=== PATIENT | female | born 1955 | race Caucasian/White ===

== ENCOUNTER 2016-11-20 14:00 | Inpatient (IN) | payer OTHER ==
[~2016-11-20] VITALS: Ht 165.1 cm; Wt 76.3 kg
--- NOTE | ~2016-11-20 | HP ---
PATIENT'S NAME: DANIEL RAMIREZ [facility] AGE: 61 Y [address] ROOM: [place] [address] LOCATION: [facility] ADMIT DATE: 12/04/2016 History & Physical DISCHARGE DATE: FAMILY PHYSICIAN: Celeste Tapia MD ATTENDING PHYSICIAN: SHIRA HOUSTON DATE OF SERVICE: CHIEF COMPLAINT: Hypertension, preop evaluation for left total knee replacement. HISTORY OF PRESENT ILLNESS: The patient is a 61-year-old female with past medical history of hypertension, hypothyroidism, and history of PVCs who presents here today for left knee surgery. The patient reports that she has been having left knee osteoarthritis pain for a while and has limited her activity of daily life. The patient was seen by Dr. Houston and is scheduled for surgery today. The patient reports that she is an active person and able to ambulate and walk up to 1 mile with no limitation of shortness of breath, chest pain, and dizziness. She reports that only thing that limits her is osteoarthritis pain. She denies any orthopnea, fever, chills, dysuria, dyspnea on exertion, paroxysmal nocturnal dyspnea, cough, abdominal pain, nausea, vomiting, and diarrhea. The patient has had lab work done on 21 of November. She had factor V Leiden mutation workup done which shows negative as she has a family history of factor V Leiden mutation with PE. The patient reports that she has had surgery in the past and did not have any complication from the surgery. She also reports that she does not have any contraindication getting blood products if needed. MEDICAL HISTORY: Hypertension, hypothyroidism, PVCs, and osteoarthritis. SURGICAL HISTORY: Hysterectomy, cholecystectomy, carpal tunnel surgery, and bone spur removal of foot. FAMILY HISTORY: Mother had a factor V Leiden mutation with PE and also heart failure. SOCIAL HISTORY: She denies smoking and drinking. 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 MEDICATIONS: 1. Tramadol 50 mg t.i.d. for pain. PATIENT'S NAME: DANIEL RAMIREZ [facility] AGE: 61 Y [address] ROOM: [address] [address] LOCATION: [facility] ADMIT DATE: 12/04/2016 History & Physical DISCHARGE DATE: FAMILY PHYSICIAN: Celeste Tapia MD ATTENDING PHYSICIAN: SHIRA HOUSTON 2. Omeprazole 40 mg q.a.m. 3. Gabapentin 300 mg t.i.d. 4. Lipitor 40 mg at bedtime. 5. Escitalopram 20 mg nightly. 6. Spironolactone 25 mg q.a.m. 7. Losartan/hydrochlorothiazide one tablet q.a.m. 8. Metoprolol succinate 50 mg q.a.m. 9. Synthroid 75 mcg daily. 10. Meloxicam 15 mg q.a.m. 11. Tylenol 650 mg t.i.d. 12. Cetirizine 10 mg q.a.m. REVIEW OF SYSTEMS: All systems have been reviewed and are negative except for what I mentioned in the HPI. PHYSICAL EXAMINATION: VITAL SIGNS: Afebrile, blood pressure 132/77, heart rate of 88, saturating 95% on room air with respiratory rate of 15. GENERAL APPEARANCE: The patient is alert and awake, lying on bed, in no acute distress. HEAD: Normocephalic, atraumatic. EYES: Extraocular muscles intact. NOSE: No nasal discharge. EARS: No ear discharge. ORAL CAVITY: Moist oral mucosa. CHEST: Clear to auscultation bilaterally. HEART: Regular rate and rhythm. No murmur, rubs, or gallops. ABDOMEN: Soft, nontender, and nondistended. Bowel sounds are present. SKIN: Warm to touch. MUSCULOSKELETAL: Range of motion intact. No obvious joint effusion. MORTUARY BEAUTICIAN: The patient is alert and oriented x3. Motor and sensory are grossly intact. LABORATORY DATA: Lab that was done on 11/21/2016 shows factor V Leiden mutation negative, potassium of 4.5, chloride of 107, carbon dioxide of 21, creatinine of 1.5. PT of 12.3, INR of 0.93, PTT of 27. White blood cell count of 6.5, hemoglobin of 13.8, hematocrit 40.9, MCV of 101. UA is unremarkable. EKG, normal sinus rhythm with no ST and T-wave ischemic changes. ASSESSMENT AND PLAN: 1. Left knee osteoarthritis. The patient is scheduled for surgery today by Dr. Houston. The patient is stable, does not have any significant cardiac PATIENT'S NAME: DANIEL RAMIREZ [facility] AGE: 61 Y [address] ROOM: [address] [address] LOCATION: [facility] ADMIT DATE: 12/04/2016 History & Physical DISCHARGE DATE: FAMILY PHYSICIAN: Celeste Tapia MD ATTENDING PHYSICIAN: SHIRA HOUSTON. The patient is able to do greater than 4 METs without any symptoms of heart failure. Also the patient does not exhibit any valvular disease on physical examination and prior echo. The patient has a creatinine of 1.5 with no prior creatinine to compare with. However, this should not withhold the proposed surgery. From a medical standpoint, there is no intervention needed to lower the risk of cardiac and pulmonary event. The patient is stable for surgery and can proceed with the proposed surgery. 2. Elevated creatinine. Etiology most likely secondary to chronic use of NSAIDs and use of diuretics such as hydrochlorothiazide, losartan, and spironolactone. To hold spironolactone and hydrochlorothiazide. To repeat renal function panel and we will follow closely. 3. Hypertension, stable. Holding diuretics, continue Toprol-XL. 4. Hypothyroidism. Continue Synthroid. 5. Premature ventricular contractions. Currently on telemetry. There is no evidence of premature ventricular contractions seen. To continue Toprol- XL. Greater than 40 minutes was spent on patient care. Greater than 50% of the time was spent on direct patient care with direct interview and physical examination and also going through the patient's chart. The patient is stable and can proceed with the proposed surgery. MD KRISTINA RYAN/beatriz /[id number] D: T: HISTORY & PHYSICAL
--- NOTE | ~2016-11-20 | DS ---
[facility] 61 Y [address] ROOM: [place] [address] LOCATION: [facility] ADMIT DATE: 12/04/2016 Discharge Summary DISCHARGE DATE: 12/06/2016 FAMILY PHYSICIAN: Celeste Tapia MD ATTENDING PHYSICIAN: Remy Lagunas PRIMARY DIAGNOSIS: Degenerative joint disease of the left knee. SECONDARY DIAGNOSIS: 1. Hypertension. 2. Dyslipidemia. 3. Hypothyroidism. 4. Depressive disorder. 5. Elevated creatinine. PROCEDURE PERFORMED: Left total knee arthroplasty. HISTORY: The patient is a 61-year-old female, who presents with advanced left knee degenerative joint disease and associated severely compromised activities of daily living. The patient has decided to proceed with total knee arthroplasty after having been thoroughly counseled regarding the risks, benefits, limitations and alternatives. Please refer to the outpatient clinic notes and admission history and physical for this patient. HOSPITAL COURSE: The patient underwent a left total knee arthroplasty on 12/04/2016 without complications. Spinal anesthesia plus adductor canal block plus periarticular local anesthesia was utilized. The patient received 24 hours of perioperative prophylactic antibiotics and remained hemodynamically stable, neurovascularly intact throughout the entire hospital course. The postoperative prophylactic deep venous thrombosis prophylaxis consisted of Aspirin 325 mg, early mobilization and pneumatic compression devices. Daily physical therapy for gait training, transfer training range of motion and quadriceps isometric exercises were received. The patient progressed well in physical therapy. On the date of discharge, 12/06/2016, the incision at the knee was healing well and showed no signs of infection. DISPOSITION: Home. DISCHARGE ACTIVITY: The patient is to bear weight as tolerated with range of motion and quadriceps isometric exercises as instructed. The operative extremity is to be elevated at least 90% of the day. There is to be sterile 4x4 gauze dressings to the incision daily. Dr. Lagunas is to be notified immediately if there is any increased pain, fevers, chills erythema or drainage. PATIENT'S NAME: DAISY RAMIREZYCLetty Interiano [facility] AGE: 61 Y [address] ROOM: [place] [address] LOCATION: [facility] ADMIT DATE: 12/04/2016 Discharge Summary DISCHARGE DATE: 12/06/2016 FAMILY PHYSICIAN: Celeste Tapia MD ATTENDING PHYSICIAN: Remy Lagunas DISCHARGE MEDICATIONS: 1. Aspirin 325 mg 1 tab p.o. for 30 days for postoperative DVT prophylaxis. 2. Hydromorphone 2 mg 1 to 2 tabs p.o. every 4 hours p.r.n. for pain. 3. She was then instructed to continue all her other preadmission medications as instructed by her internal medicine physician. FOLLOWUP: Followup appointment is to be with Dr. Lagunas's office on 12/11/2016 for her initial postoperative evaluation with x-rays of the left knee and staple removal at that time. CARMEN BAUM PA-C FOR MD ALYSSA VALENTINO/beatriz /[id number] d: 12/11/16 0057 t: 12/11/16 0836, DISCHARGE SUMMARY
--- NOTE | ~2016-11-20 | OR ---
[facility] 61 Y [address] ROOM: [place] [address] LOCATION: [facility] ADMIT DATE: 12/04/2016 OR/Procedure Report DISCHARGE DATE: FAMILY PHYSICIAN: Celeste Tapia MD ATTENDING PHYSICIAN: SHIRA HOUSTON SURGEON: Shira Houston MD TAXI DRIVER SUPERVISOR: 1. JOSE Avalos. 2. Jonathan Menezes CST/EUGENE. DATE OF PROCEDURE: 12/04/2016 PRE-OP DIAGNOSIS: Severe left knee degenerative joint disease (primary osteoarthritis). POST-OP DIAGNOSIS: Severe left knee degenerative joint disease (primary osteoarthritis). OPERATION: Left total knee arthroplasty with computer navigation. ANESTHESIA: Spinal anesthesia plus adductor canal block plus periarticular local anesthesia (ropivacaine with epinephrine and Toradol). ESTIMATED BLOOD LOSS: Less than 10 cubic centimeters. DRAIN: None. SPECIMEN: None. COMPLICATIONS: None. IMPLANT SYSTEM: Emmanuel Triathlon Size 5 left posterior stabilized femoral component Size 4 universal modular tibial baseplate 11 mm posterior stabilized size 4 X3 tibial polyethylene insert 29 mm Oval X3 patella component (triple pegged). INDICATIONS FOR SURGERY: The patient is a 61-year-old female who presents with advanced left knee degenerative joint disease and associated severely compromised activities of daily living. The patient has decided to proceed with knee replacement after having been thoroughly counseled regarding the associated risks, benefits, and limitations. We have specifically reviewed the risks and implications of infection, deep venous thrombosis, pulmonary embolism, mortality, neurovascular complications, blood transfusion (and associated potential for disease transmission or transfusion reaction), stiffness, instability, mechanical deterioration of the components (due to wear and or loosening), and the potential need for revision. We have also PATIENT'S NAME: [facility] AGE: 61 Y [address] ROOM: [place] [address] LOCATION: [facility] ADMIT DATE: 12/04/2016 OR/Procedure Report DISCHARGE DATE: FAMILY PHYSICIAN: Celeste Tapia MD ATTENDING PHYSICIAN: SHIRA HOUSTON emphasized the importance of active involvement and compliance with post- operative physical therapy as a means of optimizing range of motion and functional recovery. Informed consent has been granted. DESCRIPTION OF PROCEDURE: The patient was positioned supine after administration of anesthesia and prophylactic antibiotics. A well-padded pneumatic tourniquet was placed around the left proximal thigh, and the left lower extremity was prepped and draped with vigilant sterile technique. The patient's name as well as the intended operative side and procedure were confirmed with a verbal time-out involving myself, the circulating nurse, the scrub nurse, and the anesthesiologist. Examination under anesthesia demonstrated well-healed inferomedial and inferolateral arthroscopy portal scars. There was a large effusion. There was a valgus deformity of approximately 10 degrees. There was no erythema. There was no abnormal warmth. Range of motion under anesthesia was from 2 degrees of hyperextension to 130 degrees of flexion. There was 3 mm of laxity of the medial collateral ligament. The left lower extremity was elevated and exsanguinated with an Esmarch wrap, and the pneumatic tourniquet was inflated to 300mmHg. The knee was approached through a longitudinal midline incision. A medial parapatellar arthrotomy was performed and the patella was everted. Examination of the joint space demonstrated a large amount of benign-appearing translucent synovial fluid. There were no loose bodies. There was no proliferative synovitis. The cruciate ligaments were intact. There was mild fibrosis of the infrapatellar fat pad. There was full-thickness loss of articular cartilage involving the posterolateral 2/3rd of the lateral femoral condyle and 90% of the lateral tibial plateau. There were small osteophytes at the lateral femoral condyle and lateral tibial plateau. The lateral femoral condyle was hypoplastic. There was a longitudinal 1 x 3 cm region of high-grade partial thickness articular cartilage loss at the central aspect of the medial femoral condyle. There were generalized grade 2 degenerative changes at the medial tibial plateau. There were mild grade 3 degenerative changes at the central aspect of the femoral trochlea. There was a small osteophyte at the lateral aspect of the femoral trochlea. There were mild grade 3 degenerative changes at the apex of the patella. Remnants of the menisci and cruciate ligaments were excised. The [employer] navigation femoral tracker was pinned in place at the distal aspect of the femoral trochlea. Absence of motion between the femur and the tracking device was confirmed manually and visually. Femoral osseous landmarks were obtained in order to calibrate the computer navigation system. Landmarks included the center of rotation of the ipsilateral hip, the center-point of PATIENT'S NAME: DANIEL RAMIREZ [facility] AGE: 61 Y [address] ROOM: [id number] [place] [id number] LOCATION: [facility] ADMIT DATE: 12/04/2016 OR/Procedure Report DISCHARGE DATE: FAMILY PHYSICIAN: Celeste Tapia MD ATTENDING PHYSICIAN: SHIRA HOUSTON the distal femur, the femoral AP axis, 57 points on the medial femoral condyle articular surface, and 57 points on the lateral femoral condyle articular surface. The [employer] computer navigation system was subsequently utilized to position the distal femoral resection block such that the distal femoral resection was performed perfectly perpendicular to the femoral mechanical axis. The distal femoral resection was performed with a Hopscotch oscillating saw. The [employer] computer navigation tibial tracker was pinned in place at the anterior aspect of the tibial plateau. Absence of motion between the tibia and the tracking device was confirmed manually and visually. Tibial osseous landmarks were obtained in order to calibrate the computer navigation system. Landmarks included the center-point of the tibial plateau, the AP tibial axis, 57 points on the medial tibial plateau articular surface, 57 points on the lateral tibial plateau articular surface, the medial malleolus, and the lateral malleolus. The [employer] computer navigation system was subsequently utilized to position the proximal tibial resection block such that the proximal tibial resection was performed perfectly perpendicular to the tibial mechanical axis. The proximal tibial resection was performed with a basno Precision oscillating saw. Perpendicularity of the tibial resection with respect to the tibial shaft axis was reconfirmed by inserting a spacer- block attached to an extramedullary guide amos. External rotation of the anterior and posterior femoral resections was set parallel to the epicondylar axis and carefully adjusted in order to create a rectangular flexion gap. The box resection was performed with a reciprocating saw. Anterior and posterior chamfer resections were performed with the oscillating saw. Posterior condyle osteophytes were excised with an osteotome. All other osteophytes were excised with a rongeur. Resection of all remnants of the menisci was reconfirmed. Flexion and extension gaps were confirmed to be symmetric and well balanced with a spacer-block technique. The patella resection was performed with an oscillating saw such that the composite thickness of the reconstructed patella was equivalent to the thickness of the [place] patella. Patella tracking was confirmed to be optimal. A lateral retinacular release was required in order to optimize patella tracking. Release of the popliteus tendon and partial release of the iliotibial band were required in order to balance the flexion and extension gaps. All trial components were removed and all prepared osseous surfaces were thoroughly irrigated with pulsatile saline lavage and dried prior to cementing all three components in a single stage using [employer] Simplex cement containing pre-mixed tobramycin. All extruded excess cement was removed. The entire joint space was thoroughly inspected and thoroughly irrigated with PATIENT'S NAME: DANIEL RAMIREZ [facility] AGE: 61 Y [address] ROOM: [address] [address] LOCATION: [facility] ADMIT DATE: 12/04/2016 OR/Procedure Report DISCHARGE DATE: FAMILY PHYSICIAN: Celeste Tapia MD ATTENDING PHYSICIAN: SHIRA HOUSTON bacteriostatic pulsatile saline lavage to assure that there was no residual debris of any sort. Final range of motion was from full extension (with no passive hyperextension) to 130 degrees of flexion. Patella tracking was reconfirmed to be optimal. There was very good anteroposterior stability at 90 degrees of flexion. There was 1 mm of medial lift-off to valgus stress in full extension. There was 0 mm of lateral lift-off to varus stress in full extension. The arthrotomy was closed with multiple simple and [id number] interrupted #1 Vicryl. Subcutaneous tissues were thoroughly re-irrigated with bacteriostatic pulsatile saline lavage. Subcutaneous tissues were re- approximated with simple buried interrupted #0 Vicryl sutures. The skin was closed with simple buried interrupted 2-0 Vicryl sutures followed by surgical jordan. The dressing consisted of Xeroform gauze, 4x4 gauze, ABD pads and two 6-inch Homer Wraps. There were no intra-operative complications. It should be noted that the physician's assistant spa director played an active, integral role throughout this entire operation. By providing expert retraction, they greatly facilitated and expedited safe and effective exposure of the distal femur, proximal tibia and patella for preparation and implantation of the components. They were also actively involved in the patient's positioning, prepping and draping, as well as wound closure. MD KETTY VALENTINO/beatriz /[id number] d: 12/04/16 1926 t: 12/17/16 1310, OPERATIVE SUMMARY
[~2016-11-20 14:00] MED LIST: ALDACTONE25 MG PO; HYZAAR 50-12.51 EACH PO; LEVOTHROID(SYN75 MCG PO; LEXAPRO20 MG PO; LIPITOR40 MG PO; MOBIC15 MG PO; NEURONTIN300 MG PO; OMEPRAZOLE40 MG PO; TOPROL XL100 MG PO; TYLENOL ARTHRI650 MG PO; ULTRAM50 MG PO; ZYRTEC10 MG PO
[2016-12-04 09:29] LABS: ALBUMIN 3.9 gm/dL (3.5-5.0); ANION GAP 10.3 (10.0-19.0); CALCIUM 9.4 mg/dL (8.5-10.5); CREATININE 1.3 mg/dL (0.5-1.1); POTASSIUM 4.3 mMol/L (3.7-5.1)
--- NOTE | 2016-12-04 18:50 | NUR ---
Significant Event:PT. A/O AND COOPERATIVE. HAD LEFT TOTAL KNEE WITH ICE BAG WHEN CAME TO ROOM. DRESSING D/I. IV RFA. LUNG SOUNDS CLEAR. HAS NOT VOIDED. POST OP VSS. DENIES N/V AND EATING FULL LIQUIDS WELL. Follow up:
[2016-12-05 04:27] LABS: HEMATOCRIT 29.4 % (33.0-46.0); HEMOGLOBIN 9.8 g/dL (10.0-15.0)
--- NOTE | 2016-12-05 04:37 | NUR ---
Significant Event: PATIENT ALERT/ORIENTED X3, VITAL SIGNS WNL, STANDS AND PIVOTS TO BEDSIDE COMMODE, NO COMPLAINTS OF PAIN, SLEPT ALL NIGHT, NO BOWEL MOVEMENT Follow up:
--- NOTE | 2016-12-05 04:57 | NUR ---
Significant Event: PATIENT ALERT/ORIENTED X3, MOVES EXTRIMITIES X4, VOIDS TO BEDSIDE TOLIET,COMPLAINED OF PAIN 3 TIMES, SLEPT ALL NIGHT, NO BOWEL MOVEMENT, VITAL SIGNS WNL, PATIENT HAS NO CONCERNS AT THIS TIME Follow up:
--- NOTE | 2016-12-05 12:20 | NUR ---
SPOKE TO PATIENT REGARDING CM AND OUR ROLE. PATIENT LIVES IN OWN HOME WITH HIS SPOUSE. SHE HAS ALL HER DME. SHE IS PLANNING ON RETURNING HOME WITH HELP FROM SPOUSE,PATIENT DOES NOT ANTICIPATE ANY DISCHARGE NEEDS AT THIS TIME. CM WILL CONT TO FOLLOW NEEDED.
--- NOTE | 2016-12-05 17:23 | NUR ---
Significant Event:PT. A/O. IV RFA S/L'D. VOIDS PER BR, NO STOOL. UP WITH STANDBY ASSIST AND WALKER. ORAL PAIN MED CONTROLLING PAIN. Follow up:
--- NOTE | 2016-12-06 05:28 | NUR ---
Significant Event: Pt alert and oriented. UP with SBA, gait belt and walker, tolerates activity well. CSM WNL. Pain controlled with orals. About 0030 pt was unable to sleep and experiencing more pain, at this time ultram, and valium given and pt was albe to sleep about three hours. Did have urinary frequency throughout the night, no burning. Follow up: Discharge today.
[2016-12-06 05:47] LABS: CREATININE 1.3 mg/dL (0.5-1.1)
[2016-12-06] MEDS ORDERED: ECOTRIN325 MG PO (13:27)
[2016-12-06] MEDS ORDERED: COLACE100 MG PO (13:29)
[2016-12-06] MEDS ORDERED: MIRALAX17 GM PO (13:31)
[2016-12-06] MEDS ORDERED: DILAUDID 2MG(HYD2 MG PO (13:33)
== END 2016-12-06 16:15 | disposition disaster alternative care site (69) | DRG 470 ==
LOC: G3N 12-04 07:38
PROVIDERS: ADMIT Orthopaedic Surgery
PROC: XR2H021 Monitoring of Left Knee Joint using Intraoperative Knee Replacement Sensor, Open Approach, New Technology Group 1 (ICD-10-PCS; principal; 2016-12-04)
PROC: 0SRD0J9 Replacement of Left Knee Joint with Synthetic Substitute, Cemented, Open Approach (ICD-10-PCS; principal; 2016-12-04)
DX: M17.12 Unilateral primary osteoarthritis, left knee (principal); I10 Essential (primary) hypertension; E03.9 Hypothyroidism, unspecified; F32.9 Major depressive disorder, single episode, unspecified; R79.89 Other specified abnormal findings of blood chemistry; E78.5 Hyperlipidemia, unspecified
CPT/HCPCS: C1713; C1776; J0690; J1100; J1885; J2001; J2250; J2405; J2795; J7120

== ENCOUNTER → 2016-11-22 | Outpatient (CLI) | payer OTHER ==
[~2016-11-22] MED LIST changes: +COLACE100 MG PO; +DILAUDID 2MG(HYD2 MG PO; +ECOTRIN325 MG PO; +MIRALAX17 GM PO
== END | disposition disaster alternative care site (69) ==
LOC: GNJRC 10:56
DX: Z01.812 Encounter for preprocedural laboratory examination (principal); M17.12 Unilateral primary osteoarthritis, left knee